=== PATIENT | female | born 1980 | race Caucasian/White ===

== ENCOUNTER 2016-09-22 13:13 | Emergency (ER) | payer OTHER ==
[~2016-09-22] VITALS: Ht 160 cm; Wt 50.0 kg
[2016-09-22 13:16] VITALS: BP 133/79; PULSE 88; RESP 20; TEMP 98.2; O2SAT 100
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
[2016-09-22 14:40] LABS: BACTERIA, URINE RARE /hpf; BLOOD, URINE NEG (NEG); COMMENT (UR) CULT NOT INDICATED; CULTURE IF INDICATED CULT NOT INDICATED; GLUCOSE,URINE NEG (NEG); KETONE, URINE NEG (NEG); NITRITE,URINE NEG (NEG); PH, URINE 7.5 (5.0-8.5); SQUAMOUS EPITHELIAL CELL URINE 1 /hpf (0-5); URINE COLOR LIGHT-YELLOW (YELLW/STRAW)
--- NOTE | 2016-09-22 16:08 | RADRPT ---
EXAM DATE/TIME: 09/22/2016 15:25 [facility] COMPARISON: No previous studies available for comparison. INDICATIONS : Neck pain. RADIATION DOSE: 30.57 CTDIvol (mGy) MEDICAL HISTORY : None SURGICAL HISTORY : None. ENCOUNTER: Initial ACUITY: 1 week PAIN SCALE: 6/10 LOCATION: posterior neck. TECHNIQUE: Volumetric scanning of the cervical spine was performed. Multiplanar reconstructions in the sagittal, coronal and oblique axial planes were performed. Using automated exposure control and adjustment o f the mA and/or kV according to patient size, radiation dose was kept as low as reasonably achievable to obtain optimal diagnostic quality images. DICOM format image data is available electronically f or review and comparison. FINDINGS: VERTEBRAE: Normal vertebral body height. ALIGNMENT: No evidence of subluxation. C2-C3: The bony spinal canal is normal in size. No evidence of disc bulge or herniation. The neural forami na are bilaterally patent. C3-C4: The bony spinal canal is normal in size. No evidence of disc bulge or herniation. The neural forami na are bilaterally patent. C4-C5: The bony spinal canal is normal in size. No evidence of disc bulge or herniation. The neural forami na are bilaterally patent. C5-C6: The bony spinal canal is normal in size. No evidence of disc bulge or herniation. The neural forami na are bilaterally patent. C6-C7: The bony spinal canal is normal in size. No evidence of disc bulge or herniation. The neural forami na are bilaterally patent. C7-T1: The bony spinal canal is normal in size. No evidence of disc bulge or herniation. The neural forami na are bilaterally patent. CONCLUSION: Normal examination for a patient of this age. Rudi Donovan MD on September 22, 2016 at 15:59 Board Certified Radiologist. This report was verified electronically.
[2016-09-22] MEDS ORDERED: IBUP800T23 PO (16:20)
[2016-09-22] MEDS ORDERED: CYCL1TAB29 PO (16:20)
[2016-09-22 16:33] VITALS: BP 118/78
--- NOTE | 2016-09-25 09:23 | RADRPT ---
EXAM DATE/TIME: 09/22/2016 15:25 [facility] COMPARISON: No previous studies available for comparison. INDICATIONS : Cephalgia for one week. RADIATION DOSE: 44.57 CTDIvol (mGy) MEDICAL HISTORY : None SURGICAL HISTORY : None. ENCOUNTER: Initial ACUITY: 1 week PAIN SCALE: 5/10 LOCATION: Bilateral occipital head TECHNIQUE: Multiple contiguous axial images were obtained of the head. Using automated exposure control and adj ustment of the mA and/or kV according to patient size, radiation dose was kept as low as reasonably a chievable to obtain optimal diagnostic quality images. DICOM format image data is available electro nically for review and comparison. FINDINGS: CEREBRUM: The ventricles are normal for age. No evidence of midline shift, mass lesion, hemorrhage or acute in farction. No extra-axial fluid collections are seen. POSTERIOR FOSSA: The cerebellum and brainstem are intact. The 4th ventricle is midline. The cerebellopontine angle i s unremarkable. EXTRACRANIAL: The visualized portion of the orbits is intact. SKULL: The calvaria is intact. No evidence of skull fracture. CONCLUSION: Normal examination for a patient of this age. Rudi Donovan MD on September 22, 2016 at 15:57 Board Certified Radiologist. This report was verified electronically.
== END 2016-09-22 16:39 | disposition home or self-care (01) ==
LOC: NEPD 14:15
DX: F07.81 Postconcussional syndrome (principal); S16.1XXA Strain of muscle, fascia and tendon at neck level, initial encounter; V43.63XA Car passenger injured in collision with pick-up truck in traffic accident, initial encounter; Y92.488 Other paved roadways as the place of occurrence of the external cause
CPT/HCPCS: 70450; 72125; 81001; 84703; 99284